=== PATIENT | male | born 1940 | race Caucasian/White ===

== ENCOUNTER 2016-08-26 08:46 | Emergency (ER) | payer MEDICARE ==
[~2016-08-26] VITALS: Ht 188 cm; Wt 65.8 kg
[~2016-08-26 08:46] MED LIST: ALPR.25T PO; AMLO5TAB2 PO; BISA5TAB8 PO; BSP5T PO; CALC667C PO; CARV12.53 PO; CAVEDILOL; FLC1T PO; HYDR-3454 PO; OMEP20CA12 PO; PANT40TA PO; PANT40TA3 PO; SCR1T PO; SEVE800T7 PO; SODIUM BIC; SODIUM BICARB; Xanax; [UNRECOGNIZED DRUG - OTHER] PO; [UNRECOGNIZED DRUG - OTHER] PO
--- NOTE | 2016-08-26 08:59 | ED Upper Extremity ---
General Chief Complaint: Upper Extremity Stated Complaint: FALL; L SHOULDER AND COLLAR BONE PAIN Source: patient, EMS Exam Limitations: no limitations History of Present Illness Time seen by provider: 08:50 Initial Comments Here with fall overnight had approximately 2 a.m. with complaint of left shoulder and left upper chest pain. Currently he has had a few falls recently. Complains of hip and pelvic pain as well. Apparently having difficulty with walking. Patient is poor historian. He is on dialysis and goes to dialysis on Friday, Friday and Friday. He is scheduled for dialysis at noon today. Unsure if he hit his head. Unsure about falls over all. She denies breathing problems or chest pain. Reports taking meds as directed. Onset: this morning Severity: moderate, severe Pain/Injury Location: left shoulder Method of Injury: fell Modifying Factors: Improves With Immobilization, Worse With Movement Allergies and Home Medications Allergies Coded Allergies: No Known Drug Allergies (Unverified , 12/24/12) Home Medications 325 MG PO (Reported) 12.5 MG BID (Reported) 650 MG PO BID (Reported) (Reported) (Reported) Amlodipine Besylate 5 Mg Tablet 5 MG PO BID (Reported) Bisacodyl 5 Mg Tablet.dr 5 MG PO (Reported) Buspirone Hcl 5 Mg Tablet #30 5 MG PO TID Prescribed by: HAYDEN CROW on 01/11/14 1252 Calcium Acetate 667 Mg Capsule 1,334 MG PO TID (Reported) Carvedilol 12.5 Mg Tablet 12.5 MG PO BID (Reported) Folic Acid 1 Mg Tablet 1 TAB PO DAILY (Reported) Pantoprazole Sodium 40 Mg Tablet.dr 40 MG PO DAILY (Reported) Sevelamer Carbonate 800 Mg Tablet 800 MG PO AC (Reported) Sucralfate 1 Gm/10 Ml Susp 2 TSP PO ACHS (Reported) Constitutional: see HPINo fever, weakness EENTM: no symptoms reported Respiratory: no symptoms reportedNo short of breath Cardiovascular: no symptoms reportedNo palpitations, No syncope Gastrointestinal: No abdominal pain, No nausea, No vomiting Genitourinary: no symptoms reported Musculoskeletal: No back pain, joint pain muscle painNo neck pain Skin: no symptoms reported Psychiatric/Neurological: No Symptoms Reported All Other Systems Reviewed Negative Unless Noted: Yes Past Zalongz-Anqnan-Bnrdul Hx Patient Social History Alcohol Use: Denies Use Recreational Drug Use: No Smoking Status: Never a Smoker Former Smoker/When Quit: Aug 18, 1962 Immunizations Up To Date Date of Pneumonia Vaccine: Jun 06, 2013 Date of Influenza Vaccine: Jun 06, 2013 Surgeries HX Surgeries: Yes (dialysis shunt left arm) Respiratory Hx Respiratory Disorders: No Cardiovascular Hx Cardiac Disorders: No Neurological Hx Neurological Disorders: No Reproductive System Hx Reproductive Disorders: No Sexually Transmitted Disease: No HIV/AIDS: No Genitourinary Hx Genitourinary Disorders: Yes Genitourinary Disorders: Renal Failure, Dialysis Gastrointestinal Hx Gastrointestinal Disorders: Yes ("catheterized ulcer") Gastrointestinal Disorders: Gastroesophageal Reflux, Ulcer, Irritable Bowel Musculoskeletal Hx Musculoskeletal Disorders: No Endocrine Hx Endocrine Disorders: No HEENT HX ENT Disorders: No Cancer Hx Cancer: No Psychosocial Hx Psychiatric Problems: Yes Behavioral Health Disorders: Anxiety Integumentary HX Skin/Integumentary Disorder: No Blood Transfusions Hx Blood Disorders: No Reviewed Nursing Assessment Reviewed/Agree w Nursing PMH: Yes Family Medical History Significant Family History: No Pertinent Family Hx Physical Exam Vital Signs Vital Sign - Last 12Hours 08/26/16 08:59 Temp 97.0 Pulse 86 Resp 16 B/P 132/60 O2 Delivery Room Air Capillary Refill : General Appearance: WD/WN no apparent distress HEENT: PERRL/EOMI pharynx normal Neck: full range of motion supple Cardiovascular: regular rate, rhythm no murmur Respiratory: lungs clear normal breath sounds other (tenderness to the left upper chest wall near the left shoulder and clavicle without ventricular deformity noted.) Gastrointestinal: non tender soft Shoulder: bone tendernessNo deformity, limited ROM painNo soft tissue tenderness, No swelling Elbow/Forearm: normal inspection Wrist: Yes normal inspection, Yes normal ROM Hand: Bilateral Neurologic/Psychiatric: alert oriented x 3 Skin: normal color warm/dry Progress/Results/Core Measures Results/Orders Lab Results Laboratory Tests Test 08/26/16 09:19 Range/Units Activated Partial Thromboplast Time 30 24-35 SEC Alanine Aminotransferase (ALT/SGPT) 19 0-55 U/L Albumin 2.6 L 3.2-4.5 G/DL Alkaline Phosphatase 699 H 40-136 U/L Anion Gap 11 5-14 MMOL/L Aspartate Amino Transf (AST/SGOT) 33 5-34 U/L BUN/Creatinine Ratio 9 Basophils # (Auto) 0.0 0.0-0.1 10^3/uL Basophils (%) (Auto) 0 0-10 % Blood Urea Nitrogen 44 H 7-18 MG/DL Calcium Level 9.1 8.5-10.1 MG/DL Carbon Dioxide Level 32 21-32 MMOL/L Chloride Level 94 L 98-107 MMOL/L Creatinine 4.81 H 0.60-1.30 MG/DL Eosinophils # (Auto) 0.3 0.0-0.3 10^3/uL Eosinophils (%) (Auto) 4 0-10 % Estimat Glomerular Filtration Rate 12 Glucose Level 84 70-105 MG/DL Hematocrit 28 L 40-54 % Hemoglobin 8.3 L 13.3-17.7 G/DL INR Comment 1.0 0.8-1.4 Lymphocytes # (Auto) 2.4 1.0-4.0 X 10^3 Lymphocytes (%) (Auto) 29 12-44 % Mean Corpuscular Hemoglobin 21 L 25-34 PG Mean Corpuscular Hemoglobin Concent 29 L 32-36 G/DL Mean Corpuscular Volume 73 L 80-99 FL Mean Platelet Volume 9.3 7.4-10.4 FL Monocytes # (Auto) 0.7 0.0-1.0 X 10^3 Monocytes (%) (Auto) 8 0-12 % Neutrophils # (Auto) 5.0 1.8-7.8 X 10^3 Neutrophils (%) (Auto) 59 42-75 % Platelet Count 444 H 130-400 10^3/uL Potassium Level 5.3 H 3.6-5.0 MMOL/L Prothrombin Time 12.8 12.2-14.7 SEC Red Blood Count 3.89 L 4.35-5.85 10^6/uL Red Cell Distribution Width 27.0 H 10.0-14.5 % Sodium Level 137 135-145 MMOL/L Total Bilirubin 0.8 0.1-1.0 MG/DL Total Protein 7.3 6.4-8.2 G/DL White Blood Count 8.4 4.3-11.0 10^3/uL My Orders Orders-LISSA LOPEZ MD Cbc With Automated Diff (08/26/16 08:55) Comprehensive Metabolic Panel (08/26/16 08:55) Protime With Inr (08/26/16 08:55) Partial Thromboplastin Time (08/26/16 08:55) Chest 1 View, Ap/Pa Only (08/26/16 08:55) Shoulder, Left, 3 Views (08/26/16 08:55) Ct Head Wo (08/26/16 08:55) Saline Lock/Iv-Start (08/26/16 08:55) O2 (08/26/16 08:55) Pelvis/Bg Hips 5> Views (08/26/16 08:59) Ct Chest/Abdomen/Pelvis Wo (08/26/16 ) Vital Signs/I&O Vital Sign - Last 12Hours 08/26/16 08:59 Temp 97.0 Pulse 86 Resp 16 B/P 132/60 O2 Delivery Room Air Progress Note : Progress Note Seen and evaluated. IV, labs, chest x-ray, left shoulder x-ray, bilateral hips and pelvis x-ray and CT head ordered (due to multiple fall history and poor historian). Monitor patient. CT chest ordered due to chest x-ray findings. This was increased to chest abdomen pelvis as patient has significant amount of fluid. Overall radiologist discussed with me the results as noted below. Lymphoma concerns discussed with Dr. Heck she will continue to follow. Patient has no significant fractures or findings related to the fall. He does need dialysis and this was discussed with the patient and family. We did call his dialysis center and they are able to take him if we can get him over there now. The [facility] will take him now. Discharged home with return precautions. Patient verbalize understanding instructions and agreement with plan. Diagnostic Imaging Diagonstic Imaging: CT Plain Films/CT/US/NM/MRI: chest, abdomen, pelvis Comments NAME: RAN ROMERO [facility] REC#: [id number] PT STATUS: REG ER : 1940 PHYSICIAN: LISSA LOPEZ MD ADMIT DATE: 08/26/16/ER Draft Date of Exam:08/26/16 CT CHEST/ABDOMEN/PELVIS WO PROCEDURE: CT chest, abdomen, and pelvis without contrast. TECHNIQUE: Multiple contiguous axial images were obtained through the chest, abdomen, and pelvis without the use of intravenous contrast. INDICATION: Shortness of breath. Fall. Concern for rib fracture. FINDINGS: CT chest: There are bilateral bolwfokk-ac-wuzgl pleural effusions. There are associated pulmonary basilar areas of patchy consolidation with air bronchograms which may relate to atelectasis. No pneumothorax. The heart size is slightly enlarged. There is no significant mediastinal hematoma. There are, however, multiple enlarged lymph nodes in the mediastinum including a 1.6 cm infracarinal lymph node and a 1.3 cm pretracheal lymph node. There is generalized fatty stranding in the mediastinum and subcutaneous tissues, probably related to generalized body edema. There is bilateral mild axillary lymphadenopathy also seen. The osseous structures demonstrate a compression fracture of T11 vertebral body that appears to be unchanged from correlating radiograph of 08/07/2015. CT abdomen and pelvis: The right hepatic lobe demonstrates a 1.5 cm hypodense lesion which may relate to a cyst. There are layering densities in the gallbladder compatible with sludge with a small calcified stone. A soft tissue density nodule adjacent to the gallbladder neck is 1.2 cm in size and is perhaps a kenia hepatis mildly enlarged lymph node. There are para-aortic enlarged lymph node masses seen including a left para-aortic 4 x 3.5 cm lymph node mass below the level of the left renal vessels. The spleen is mildly enlarged at 14 x 11.1 x 5 cm. The pancreas appears unremarkable. The right adrenal gland appears unremarkable. The left adrenal gland is not well from adjacent nodules which are favored to be retroperitoneal lymph nodes rather than an adrenal nodule. Generalized tissue edema is seen in the fatty planes, which in addition to the lack of IV contrast is limitation to the interpretation. The kidneys demonstrate multiple calcifications that appear to involve the renal papilla region which may relate to prior papillary necrosis. Mild prominence of the renal collecting system is seen bilaterally. There is a lymph node mass seen along the left external iliac station measuring 3.3 x 2.7 x 3.9 cm just above the inguinal ligament. Another enlarged external iliac lymph node on the right side is seen, slightly smaller measuring 2.8 x 1.6 cm. There is suggestion of smaller lymphadenopathy along the common iliac arteries. No significant free fluid or fluid collection in the peritoneal cavity seen. The abdominal aorta is normal in caliber. The osseous structures appear grossly unremarkable. IMPRESSION: CT chest: 1. Bilateral lgxhclpo-lr-agbqu pleural effusions with associated bibasilar patchy areas of consolidation may relate to atelectasis and possible alveolar edema component. There is generalized body wall edema as well. 2. Mild mediastinal and axillary lymphadenopathy. CT abdomen and pelvis: 1. Generalized body edema could relate to heart failure and/or fluid overload. Correlate clinically. 2. Multiple enlarged lymph nodes most prominent in the para-aortic and external iliac stations concerning for lymphoma. 3. Gallstone and gallbladder sludge. 4. Renal medullary calcifications in the papilla may relate to prior papillary necrosis. There is minimal prominence of the renal pelvis on both sides without obstructive stone seen. The findings of fluid overload and concern for lymphoma were discussed with Dr. Lopez by Dr. Hall at the time of dictation. Dictated on workstation # [id number] Dict: 08/26/16 1125 Trans: 08/26/16 1210 [id number] Interpreted by: NOMI HALL MD Electronically signed by: Dionna Imaging: Xray Plain Films/CT/US/NM/MRI: chest Comments NAME: RAN ROMERO [facility] REC#: [id number] PT STATUS: REG ER : 1940 PHYSICIAN: LISSA LOPEZ MD ADMIT DATE: 08/26/16/ER Signed Date of Exam: 08/26/16 CHEST 1 VIEW, AP/PA ONLY Clinical indication: Patient status post fall last night with complaints of left shoulder and collarbone pain. Exam: Chest x-ray PA and lateral views. Comparisons: Portable chest x-ray dated 10/11/2015. Findings: There appears to be minimal extrathoracic subcutaneous air involving the mid right thorax region. There is no definite adjacent fracture seen. There is no definitive pneumothorax seen. There is improved aeration of the right lung with persistent patchy opacities involving the right lung. There is development of a small left pleural effusion with increased left lung base atelectasis or infiltrate. There are hypertrophic spurs seen throughout the visualized thoracic and lumbar spine. Pulmonary vasculature and cardiac silhouette is within normal limits. IMPRESSION: 1: Suspected minimal subcutaneous air seen bilaterally adjacent right mid hemithorax region. There is no pneumothorax or rib fractures seen in the region. Chest CT scan is suggested for better evaluation. 2: There is development of a small moderate-sized left pleural effusion and increased left lung base atelectasis versus infiltrate. 3: There is slight improved aeration of the right lung with persistent atelectasis versus infiltrate remaining. Dictated by: Dictated on workstation # [id number] Dict: 08/26/1648 Trans: 08/26/16 1210 [facility] [id number] Interpreted by: DAWIT ZAPATA MD Electronically signed by:DAWIT ZAPATA MD 08/26/16 1212 Diagonstic Imaging: Xray Plain Films/CT/US/NM/MRI: pelvis Comments VIA [facility]. [place], [place] NAME: RAN ROMERO [facility] REC#: [id number] PT STATUS: REG ER : 1940 PHYSICIAN: LISSA LOPEZ MD ADMIT DATE: 08/26/16/ER Draft Date of Exam:08/26/16 PELVIS/BG HIPS 5> VIEWS INDICATION: Fall with pelvic pain. TECHNIQUE: An AP pelvis and AP and oblique views of both hips were obtained. FINDINGS: No fracture or acute bony abnormality is seen. There is mild degenerative change of both hips. There is mild degenerative change in the lower lumbar spine. IMPRESSION: Mild chronic findings with no acute bony abnormality. Dictated on workstation # [id number] Dict: 08/26/1653 Trans: 08/26/16 1007 [id number] Interpreted by: JEFFREY TAVARES MD Electronically signed by: Diagonstic Imaging: Xray Plain Films/CT/US/NM/MRI: other (shoulder) Comments NAME: RAN ROMERO [facility] REC#: [id number] PT STATUS: REG ER : 1940 PHYSICIAN: LISSA LOPEZ MD ADMIT DATE: 08/26/16/ER Signed Date of Exam: 08/26/16 SHOULDER, LEFT, 3 VIEWS CLINICAL INDICATION: Patient is status post fall last night. Patient complains of left shoulder and collarbone pain. EXAM: X-ray of the left shoulder, 3 views. COMPARISON: None. FINDINGS: There is no evidence of acute fracture or dislocation. There is no rib fracture or bony abnormality seen. There is a left pleural effusion seen. There are mild degenerative spurs involving the left glenohumeral joint. There are minimal degenerative spurs involving the left glenohumeral joint and left acromioclavicular joint. 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 Dictated by: Dictated on workstation # [id number] Dict: 08/26/1652 Trans: 08/26/16 1214 DARIANA [id number] Interpreted by: DAWIT ZAPATA MD Electronically signed by:DAWIT ZAPATA MD 08/26/16 1216 Diagonstic Imaging: CT Plain Films/CT/US/NM/MRI: head Comments NAME: RAN ROMERO [facility] REC#: [id number] PT STATUS: REG ER : 1940 PHYSICIAN: LISSA LOPEZ MD ADMIT DATE: 08/26/16/ER Signed Date of Exam: 08/26/16 CT HEAD WO PROCEDURE: CT head without contrast. TECHNIQUE: Multiple contiguous axial images were obtained through the brain without the use of intravenous contrast. INDICATION: Fall. Head injury. Comparison: 01/12/2014 Findings: No acute intracranial hemorrhage, mass effect or edema is seen. Kennedy-white junction is preserved. Ventricles appear normal. There is mild diffuse atrophy, similar to the prior exam. No new focal abnormalities demonstrated. The paranasal sinuses and mastoids are clear as visualized. IMPRESSION: No evidence of an acute intracranial abnormality. No significant interval change from the prior study. Dictated by: Dictated on workstation # [id number] Dict: 08/26/16 0932 Trans: 08/26/16 0940 AMIE [id number] Interpreted by: EVELYN SMITH DO Electronically signed by:EVELYN SMITH DO 08/26/16 0943 Departure Impression Impression: Primary Impression: End stage renal failure on dialysis Additional Impressions: Volume overload Qualified Code: E87.70 - Fluid overload, unspecified Contusion of left shoulder Qualified Code: S40.012A - Contusion of left shoulder, initial encounter Disposition: 01 HOME, SELF-CARE Condition: Stable Departure-Patient Inst. Decision time for Depature: 12:46 Referrals: VANESSA HECK MD (PCP/Family) Primary Care Physician Patient Instructions: Contusion (DC), Lymphoma (DC), Shoulder Pain (DC) Add. Discharge Instructions: All discharge instructions reviewed with patient and/or family. Voiced understanding. Go directly to the dialysis center. Return for breathing problems, weakness, chest pain or other concerns as needed. You have a significant amount of fluid that needs to be dialyzed. You should follow-up with your kidney doctor in one to 2 days for continued care and evaluation and you may need further dialysis, even on a daily basis, to get the fluid off. Discussed this with her kidney doctor. You may take Tylenol as needed for the pain of the shoulder. Return for worsening, fever, vomiting, weakness, breathing problems or other concerns as needed. You will also need to follow-up with Dr. Heck related to the lymph node findings and concerns for lymphoma. Copy Copies To 1: VANESSA HECK MD, TIMOTHY D MD Aug 26, 2016 08:59
[2016-08-26 09:26] LABS: BASOPHILS % (AUTO) 0 % (0-10); EOSINOPHILS # (AUTO) 0.3 10^3/uL (0.0-0.3); EOSINOPHILS % (AUTO) 4 % (0-10); LYMPHOCYTES # (AUTO) 2.4 X 10^3 (1.0-4.0); LYMPHOCYTES % (AUTO) 29 % (12-44); MEAN CORPUSCULAR HEMOGLOBIN 21 PG (25-34); MEAN CORPUSCULAR HGB CONC 29 G/DL (32-36); MEAN CORPUSCULAR VOLUME 73 FL (80-99); MEAN PLATELET VOLUME 9.3 FL (7.4-10.4); MONOCYTES # (AUTO) 0.7 X 10^3 (0.0-1.0); MONOCYTES % (AUTO) 8 % (0-12); NEUTROPHILS % (AUTO) 59 % (42-75); PLATELET COUNT 444 10^3/uL (130-400); RED BLOOD COUNT 3.89 10^6/uL (4.35-5.85); WHITE BLOOD COUNT 8.4 10^3/uL (4.3-11.0)
[2016-08-26 09:36] LABS: PROTHROMBIN TIME PATIENT 12.8 SEC (12.2-14.7)
--- NOTE | 2016-08-26 09:38 | Diagnostic Imaging Report ---
PROCEDURE: CT head without contrast. TECHNIQUE: Multiple contiguous axial images were obtained through the brain without the use of intravenous contrast. INDICATION: Fall. Head injury. Comparison: 01/12/2014 Findings: No acute intracranial hemorrhage, mass effect or edema is seen. Kennedy-white junction is preserved. Ventricles appear normal. There is mild diffuse atrophy, similar to the prior exam. No new focal abnormalities demonstrated. The paranasal sinuses and mastoids are clear as visualized. IMPRESSION: No evidence of an acute intracranial abnormality. No significant interval change from the prior study. Dictated by: Dictated on workstation # [id number]
[2016-08-26 09:44] LABS: ALBUMIN 2.6 G/DL (3.2-4.5); BILIRUBIN,TOTAL 0.8 MG/DL (0.1-1.0); CALCIUM 9.1 MG/DL (8.5-10.1); CREATININE SERUM 4.81 MG/DL (0.60-1.30); POTASSIUM 5.3 MMOL/L (3.6-5.0); TOTAL PROTEIN 7.3 G/DL (6.4-8.2)
--- NOTE | 2016-08-26 09:55 | Diagnostic Imaging Report ---
Clinical indication: Patient status post fall last night with complaints of left shoulder and collarbone pain. Exam: Chest x-ray PA and lateral views. Comparisons: Portable chest x-ray dated 10/11/2015. Findings: There appears to be minimal extrathoracic subcutaneous air involving the mid right thorax region. There is no definite adjacent fracture seen. There is no definitive pneumothorax seen. There is improved aeration of the right lung with persistent patchy opacities involving the right lung. There is development of a small left pleural effusion with increased left lung base atelectasis or infiltrate. There are hypertrophic spurs seen throughout the visualized thoracic and lumbar spine. Pulmonary vasculature and cardiac silhouette is within normal limits. IMPRESSION: 1: Suspected minimal subcutaneous air seen bilaterally adjacent right mid hemithorax region. There is no pneumothorax or rib fractures seen in the region. Chest CT scan is suggested for better evaluation. 2: There is development of a small moderate-sized left pleural effusion and increased left lung base atelectasis versus infiltrate. 3: There is slight improved aeration of the right lung with persistent atelectasis versus infiltrate remaining. Dictated by: Dictated on workstation # [id number]
--- NOTE | 2016-08-26 10:07 | Diagnostic Imaging Report ---
CLINICAL INDICATION: Patient is status post fall last night. Patient complains of left shoulder and collarbone pain. EXAM: X-ray of the left shoulder, 3 views. COMPARISON: None. FINDINGS: There is no evidence of acute fracture or dislocation. There is no rib fracture or bony abnormality seen. There is a left pleural effusion seen. There are mild degenerative spurs involving the left glenohumeral joint. There are minimal degenerative spurs involving the left glenohumeral joint and left acromioclavicular joint. 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 Dictated by: Dictated on workstation # [id number]
--- NOTE | 2016-08-26 10:08 | Diagnostic Imaging Report ---
INDICATION: Fall with pelvic pain. TECHNIQUE: An AP pelvis and AP and oblique views of both hips were obtained. FINDINGS: No fracture or acute bony abnormality is seen. There is mild degenerative change of both hips. There is mild degenerative change in the lower lumbar spine. IMPRESSION: Mild chronic findings with no acute bony abnormality. Dictated by: Dictated on workstation # [id number]
--- NOTE | 2016-08-26 12:10 | Diagnostic Imaging Report ---
PROCEDURE: CT chest, abdomen, and pelvis without contrast. TECHNIQUE: Multiple contiguous axial images were obtained through the chest, abdomen, and pelvis without the use of intravenous contrast. INDICATION: Shortness of breath. Fall. Concern for rib fracture. FINDINGS: CT chest: There are bilateral [id number] pleural effusions. There are associated pulmonary basilar areas of patchy consolidation with air bronchograms which may relate to atelectasis. No pneumothorax. The heart size is slightly enlarged. There is no significant mediastinal hematoma. There are, however, multiple enlarged lymph nodes in the mediastinum including a 1.6 cm infracarinal lymph node and a 1.3 cm pretracheal lymph node. There is generalized fatty stranding in the mediastinum and subcutaneous tissues, probably related to generalized body edema. There is bilateral mild axillary lymphadenopathy also seen. The osseous structures demonstrate a compression fracture of T11 vertebral body that appears to be unchanged from correlating radiograph of 08/07/2015. CT abdomen and pelvis: The right hepatic lobe demonstrates a 1.5 cm hypodense lesion which may relate to a cyst. There are layering densities in the gallbladder compatible with sludge with a small calcified stone. A soft tissue density nodule adjacent to the gallbladder neck is 1.2 cm in size and is perhaps a kenia hepatis mildly enlarged lymph node. There are para-aortic enlarged lymph node masses seen including a left para-aortic 4 x 3.5 cm lymph node mass below the level of the left renal vessels. The spleen is mildly enlarged at 14 x 11.1 x 5 cm. The pancreas appears unremarkable. The right adrenal gland appears unremarkable. The left adrenal gland is not well from adjacent nodules which are favored to be retroperitoneal lymph nodes rather than an adrenal nodule. Generalized tissue edema is seen in the fatty planes, which in addition to the lack of IV contrast is limitation to the interpretation. The kidneys demonstrate multiple calcifications that appear to involve the renal papilla region which may relate to prior papillary necrosis. Mild prominence of the renal collecting system is seen bilaterally. There is a lymph node mass seen along the left external iliac station measuring 3.3 x 2.7 x 3.9 cm just above the inguinal ligament. Another enlarged external iliac lymph node on the right side is seen, slightly smaller measuring 2.8 x 1.6 cm. There is suggestion of smaller lymphadenopathy along the common iliac arteries. No significant free fluid or fluid collection in the peritoneal cavity seen. The abdominal aorta is normal in caliber. The osseous structures appear grossly unremarkable. IMPRESSION: CT chest: 1. Bilateral [id number] pleural effusions with associated bibasilar patchy areas of consolidation may relate to atelectasis and possible alveolar edema component. There is generalized body wall edema as well. 2. Mild mediastinal and axillary lymphadenopathy. CT abdomen and pelvis: 1. Generalized body edema could relate to heart failure and/or fluid overload. Correlate clinically. 2. Multiple enlarged lymph nodes most prominent in the para-aortic and external iliac stations concerning for lymphoma. 3. Gallstone and gallbladder sludge. 4. Renal medullary calcifications in the papilla may relate to prior papillary necrosis. There is minimal prominence of the renal pelvis on both sides without obstructive stone seen. The findings of fluid overload and concern for lymphoma were discussed with Dr. Gonzalez by Dr. Hall at the time of dictation. Dictated by: Dictated on workstation # [id number]
[2016-08-26 13:05] VITALS: BP 132/60
== END 2016-08-26 13:05 | disposition home or self-care (01) ==
LOC: EDUNIT# 08:46 → ER 08:47
DX: S40.012A Contusion of left shoulder, initial encounter (principal); J90 Pleural effusion, not elsewhere classified; R60.1 Generalized edema; R59.0 Localized enlarged lymph nodes; K82.8 Other specified diseases of gallbladder; R29.6 Repeated falls; N28.9 Disorder of kidney and ureter, unspecified; N18.9 Chronic kidney disease, unspecified; Z99.2 Dependence on renal dialysis; Z79.899 Other long term (current) drug therapy; W01.0XXA Fall on same level from slipping, tripping and stumbling without subsequent striking against object, initial encounter; Y92.009 Unspecified place in unspecified non-institutional (private) residence as the place of occurrence of the external cause; Y99.8 Other external cause status
CPT/HCPCS: 36415; 70450; 71010; 71250; 73030; 73523; 74176; 80053; 85025; 85610; 85730